=== PATIENT | female | born 1975 | race Caucasian/White ===

== ENCOUNTER → 2025-02-10 | Outpatient (CLI) | payer MEDICAID, SELFPAY ==
--- NOTE | 2025-02-10 09:45 | XR_ITS ---
Examination: Screening digital mammography, bilateral Computer aided detection 3-D breast Tomosynthesis, bilateral Date and time of exam: February 10, 2025 0929 hours Compared to mammograms dating to April 08, 2019 Indication: Screening Technique: Nonmagnified MLO, CC views of the breasts to been obtained, reconstructed from 3-D Tomosynthesis images. R2 computer aided detection program utilized for evaluation of suspicious masses and/or abnormal calcifications. 3-D Tomosynthesis images obtained. Findings: The breasts are heterogeneously dense, which may obscure small masses 8mm nodule upper outer left breast lobular margins Impression: BI-RADS Category 0: Incomplete: Need additional imaging evaluation 8mm nodule lobular margins upper outer left breast, recommend follow-up spot tomographic views of this nodule as well as left breast sonography to complete the workup.
== END | disposition home or self-care (01) ==
LOC: CDIM 09:23
PROVIDERS: Referring Provider Physician Assistant; Visit Provider Physician Assistant
DX: Z12.31 Encounter for screening mammogram for malignant neoplasm of breast (principal); R92.8 Other abnormal and inconclusive findings on diagnostic imaging of breast; N63.21 Unspecified lump in the left breast, upper outer quadrant
CPT/HCPCS: 77063; 77067

== ENCOUNTER → 2025-07-23 | Outpatient (CLI) | payer MEDICAID, SELFPAY ==
--- NOTE | 2025-07-23 14:00 | XR_ITS ---
Examination: Breast ultrasound, unilateral, left complete Date and time of exam: July 23, 2025 1408 hours INDICATIONS: Mammogram February 10, 2025 8mm nodule lobular margins upper outer left breast Technique: Real-time chatman scale ultrasonographic imaging performed left breast including all 4 quadrants as well as nipple retroareolar and axillary region. Findings: 1:00 nodule circumscribed 8 x 6 mm 6:00 bowel or artifact 5 x 4 mm IMPRESSION: BI-RADS Category 3: Probably benign findings Recommend 6 month left breast sonogram follow-up to document stability of findings above
--- NOTE | 2025-07-23 14:30 | XR_ITS ---
Examination: Diagnostic digital mammography, unilateral, left Computer aided detection 3-D breast Tomosynthesis, unilateral Date and time of exam: July 23, 2025 1424 hours INDICATIONS: Mammogram February 10, 2025 8mm nodule upper outer left breast lobular margins Technique: Nonmagnified MLO, CC views of the left breast have been obtained, reconstructed from 3-D Tomosynthesis images. R2 computer aided detection program utilized for evaluation of suspicious masses and/or abnormal calcifications. 3-D Tomosynthesis images obtained. Findings: The breast is heterogeneously dense, which may obscure small masses Nodule is confirmed upper outer left breast 8 mm, likely corresponding to 1:00 nodule described on left breast sonogram today Impression: BI-RADS category 3: Probably benign findings Recommend continued 6 month follow-up left breast sonogram
== END | disposition home or self-care (01) ==
PROVIDERS: PCP Physician Assistant; Referring Provider Physician Assistant; Visit Provider Physician Assistant
DX: R92.332 Mammographic heterogeneous density, left breast (principal); N63.21 Unspecified lump in the left breast, upper outer quadrant
CPT/HCPCS: 76641; 77061; 77065; G0279